=== PATIENT | female | born 1985 | race African-American/Black ===

== ENCOUNTER 2017-11-05 09:06 | Day surgery (SDC) | payer OTHER, SELFPAY ==
[2017-11-01 15:12] VITALS: BMI 33.3
[2017-11-05] VITALS (7 sets, daily range): BP systolic 124–137; BP diastolic 80–89; PULSE 68–86; RESP 10–18; TEMP 36–36.8; O2SAT 100; BMI 33.3
--- NOTE | 2017-11-05 | PATH_ITS ---
[facility] Accession Number: [id number] . 01 Material submitted: . SEGMENTS OF BILATERAL FALLOPIAN TUBES . 02 Diagnosis: Bilateral Fallopian Tube Segments, Sterilization: Two complete circumferential segments of fallopian tube. No evidence of neoplasm. I/11/08/2017 . 02 Electronically signed: . Ester Paris MD, Pathologist NPI- [id number] . 01 Gross description: . Received in one formalin-filled container labeled with the patient's name and labeled segments of ivan fallopian tubes, are two rough, cylindrical-shaped, fimbriated portions of tissue. The first measures 5.0 x 0.5 x 0.4 cm; inked blue. Four motor vehicle field representative sections are submitted in cassette A1. The second piece measures 5.0 x 0.5 x 0.4 cm; inked black. Four motor vehicle field representative sections are submitted in cassette A2. ([id number]) /FRR . 02 Pathologist provided ICD-10: Z30.2 . 02 CPT . 414254 Performed at: 01 [facility] [address], [place], [place] [id number] MD Christopher Jo MD Phone: [phone] Performed at: 02 [facility] [address] [place], [place] [id number] MD Luis Kunz MD Phone: [phone]
--- NOTE | 2017-11-05 10:14 | PM.PREOP ---
Pre-operative Note Interval Note Pre-op Check: Yes History & Physical Reviewed by Physician Changes: No
[2017-11-05] MEDS: LACTATED RINGERS 1,000 ML 100 ML IV (10:15)
--- NOTE | 2017-11-05 11:08 | SUR.OPER ---
Lithotomy on padded OR bed, head on pillow, arms secured on padded arm boards at <90 degrees abduction. Legs secured in padded yellow fins stirrups.
[2017-11-05] MEDS: BUPIVACAINE 0.25% (PF) VIAL 30 ML INJ (11:14)
--- NOTE | 2017-11-05 11:43 | PM.GYNOP.1 ---
Operative Date/Time/Diagnoses Date of procedure: 11/05/17 Time of procedure: 10:30 Pre-op diagnosis: Desired sterilization Post-op diagnosis: same Procedure: Procedures Operation Date: 11/05/17 10:30 Actual Procedures Side Surgeon p Laparoscopic Salpingectomy Bilateral Norma Dyson MD Indications: The patient is a 31-year-old year old 4 para 3 abortus 1 female here for laparoscopic bilateral salpingectomies to achieve sterilization. She has considered all her control and surgical options and desires permanent control with removal of her fallopian tubes. She has used Depo-Provera in the past (more than 5 years), which worked well. Her last dose was 05 October 2017 in order to ensure no prior to surgery. Menses when not on control are regular and not heavy or painful. The risks, benefits, limitations, alternatives, and expectations of surgery were discussed, and the consent was reviewed and signed prior to the date of surgery. Surgeon: Norma Dyson Staff Submarine Warfare Officer: Lucas Regan Anesthesia Type: General and Local (0.25 arcaine, plain) Operative Notes Findings: Exam under anesthesia: Uterus is retroverted and approximately 6 weeks in size. No adnexal masses are palpable. Laparoscopic findings: Uterus appeared normal. Fallopian tubes and ovaries also appeared normal. A possible Mastersons window was noted at the left uterosacral region. There were no endometriosis lesions noted in the posterior uterus, ovarian fossae, or overlying the bladder. The appendix was not visualized. The liver edge appeared normal. Closure Type: primary Specimen(s): left tube and right tube Estimated blood loss (mL): 20 Blood products transfused: none Procedure in detail: The patient was taken to the operating room, where general endotracheal anesthesia was administered without complications. The patient was placed into the low dorsal lithotomy position with her lower extremities in Yellofin stirrups. Exam under anesthesia was then performed with the findings noted above. Perineum, vagina, and abdomen were then prepped and draped in a sterile fashion. Urinary catheterization was then performed using an in-and-out catheter. Procedure time-out was then performed. Attention was first turned to the perineum for placement of the uterine manipulator. A sterile bivalve speculum was inserted into the vagina, then the anterior lip of the cervix was grasped with a single-tooth tenaculum. The tenaculum pulled through the cervix with very gentle traction, resulting in a small laceration. This was repaired at the end of the case with [id number] sutures of 2-0 and 3-0 chromic. The tenaculm was replaced, then the cervix was serially dilated using Carlitos dilators until a ZUMI uterine manipulator could be advanced. The balloon was inflated, then the tenaculum and speculum removed from the vagina. A sponge stick was left in the vagina to apply pressure to the then-bleeding cervical tear. Local anesthetic was then injected infraumbilically using 0.25% Marcaine. A horizontal skin incision was then made with a scalpel below the umbilicus measuring approximately 10 mm in length. The abdominal wall was then grasped and tented up with a Kaity clamp while a Veress needle was inserted through the incision. Saline drop test was suggestive of intraperitoneal placement. Carbon dioxide gas insufflation was then performed with appropriate opening pressures noted. After instilling approximately 2 L of carbon dioxide, a 5 mm 0 degree laparoscope within a 5 mm trocar was inserted through the anterior layers of the abdominal wall using Optiview technique. The abdomen and pelvis were visualized with the findings as noted above. The patient was placed into Trendelenburg position for better visualization. A second trocar was inserted at the patient's right lower quadrant. This was done by first instilling local anesthetic, then incising the skin and inserting a 5 mm trocar under direct visualization using the laparoscopic. A third trocar was placed at the left lower quadrant in a similar fashion. An atraumatic grasper was then utilized to manipulate the tissue and improve visualization throughout the pelvis. The right fallopian tube was grasped at its distal end and tented anteriorly. The tubo-ovarian pedicle was then cross clamped with the Olympus PlasmaKinetic, cauterized, then incised. Subsequently, the right mesosalpinx was cauterized and incised, working lateral to medial to dissect to the right fallopian tube off the underlying mesosalpinx. Once the cornual region was reached, the cornual fallopian tube was cross clamped, cauterized, and incised then the fallopian tube was removed from the abdomen. Some residual bleeding at the dissection and adjacent to the uterus was controlled with cautery. Attention was then turned to the patient's left fallopian tube, which was which was removed in a similar fashion. The left fallopian tube was then removed from the abdomen. At this point the laparoscopic procedure was deemed complete. Hemostasis was ensured at the operative sites. The carbon dioxide gas was allowed to escape and the trocars removed from the abdomen. The trocar sites were then closed with 4-0 Monocryl in a subcuticular fashion. Exofin skin glue was then applied. Attention was then returned to the patient's perineum, where the uterine manipulator balloon was deflated and the uterine manipulator removed. The cervical tear was repaired as noted above, then the speculum was removed from the vagina. At this point the procedure was deemed complete. Sponge, lap, and needle count were correct x3. The patient was subsequently awakened, extubated, and transferred to the PACU in stable condition. Complications: none Post-operative Condition: stable Disposition: same day surgery Plan for aftercare: See discharge instructions.
[2017-11-05] MEDS: OXYCODONE/ACETAMINOPHEN 5/325 TABLET 1 TAB PO (12:02)
[2017-11-05] MEDS: ONDANSETRON 4 MG ODT PO (12:38)
--- NOTE | 2017-11-05 12:47 | SUR.PHASEII ---
patient with nausea post vidodin. IV out. Pt given zofran and reports improvement. Dr. Dyson contacted and will put rx in [place] [employer]. [place] [employer].
== END 2017-11-05 12:43 | disposition home or self-care (01) ==
PROVIDERS: PCP Nurse Practitioner Family; Visit Provider Obstetrics & Gynecology
PROC: 0UT74ZZ Resection of Bilateral Fallopian Tubes, Percutaneous Endoscopic Approach (ICD-10-PCS; CPT 58661; principal; 2017-11-05 10:30)
DX: Z30.2 Encounter for sterilization (principal)
CPT/HCPCS: 58661; J0330; J1100; J1885; J2250; J2405; J2704; J3010